=== PATIENT | male | born 1980 | race Caucasian/White ===

== ENCOUNTER 2017-09-10 00:01 | Emergency (ER) | payer BC ==
[2017-09-10] MEDS ORDERED: Nitrostat 0.4 MG (ED) SL ONE ×2 (00:21→00:43)
[2017-09-10] MEDS ORDERED: Phenergan 25 MG INJ IV ONE (00:25)
--- NOTE | 2017-09-10 00:26 | ERPHSYRPT ---
- History of Present Illness Time Seen by Provider: 09/10/17 00:12 Source: patient Exam Limitations: no limitations Patient Subjective Stated Complaint: c/o having dizziness and symptoms related to increased BP, no previous diagnosed hx Triage Nursing Assessment: dizziness, no vomiting or nausea, c/o head ache, pupils PERRLA, Alert and oriented x 4 Physician History: FOR THE PAST 3 HOURS PT HAS HAD AN INTERMITTENT PRESSURE HEADACHE, DIZZINESS AND PAIN IN THE LEFT SIDE OF THE NECK; FOR THE PAST 90 MINUTES NUMB LIPS; FOR THE PAST 30 MINUTES TINGLING DOWN BOTH ARMS. PT DENIES WEAKNESS, NAUSEA, VOMITING, SHORTNESS OF AIR. Allergies/Adverse Reactions: No Known Drug Allergies Allergy (Unverified 09/10/17 00:09) Home Medications: Anti-Depressant 09/10/17 [History] Gabapentin [Gralise] 09/10/17 [History] Mood Stimulator 09/10/17 [History] Omeprazole 20 MG [Prilosec 20 mg] 1 tab PO DAILY 09/10/17 [History] Hx Tetanus, Diphtheria Vaccination/Date Given: Yes Immunizations Up to Date: Yes - Review of Systems Constitutional: No Fever Respiratory: No Dyspnea Cardiac: No Chest Pain Abdominal/Gastrointestinal: No Nausea, No Vomiting Musculoskeletal: Neck Pain Neurological: Dizziness, Headache, Sensory Changes (TINGLING IN BOTH ARMS AND NUMB LIPS TONIGHT) All Other Systems: Reviewed and Negative - Past Medical History Neurological History: Peripheral Neuropathy GI Medical History: GERD Psycho-Social History: Anxiety, Depression, Other Other Medical History: PTSD - Past Surgical History Past Surgical History: No - Social History Smoking Status: Never smoker Drug Use: none - Nursing Vital Signs Nursing Vital Signs: Initial Vital Signs Temperature 98.6 F 09/10/17 00:18 Pulse Rate 80 09/10/17 00:18 Respiratory Rate 20 09/10/17 00:18 Blood Pressure 166/118 09/10/17 00:18 O2 Sat by Pulse Oximetry 98 09/10/17 00:18 Pain Scale Pain Intensity 0 - Physical Exam General Appearance: alert, anxiety Eye Exam: PERRL/EOMI Ears, Nose, Throat Exam: TMs normal, pharynx normal, moist mucous membranes Neck Exam: normal inspection Respiratory Exam: lungs clear Cardiovascular Exam: normal heart sounds Gastrointestinal/Abdomen Exam: soft, normal bowel sounds Back Exam: normal range of motion Extremity Exam: normal inspection, normal range of motion, No pedal edema Neurologic Exam: alert, cooperative, sensation nml, other (NO BABINSKI PRESENT) , No motor deficits, No motor weakness Skin Exam: warm, dry SpO2 Interpretation: normal SpO2: 98 Oxygen Delivery: Room Air - Course Nursing assessment & vital signs reviewed: Yes EKG Interpreted by Me: RATE (86), Sinus Rhythm, NORMAL AXIS, NORMAL INTERVALS - Radiology Exams Chest X-ray Interpretation: Interpreted by me, No Pneumonia - CT Exams Head CT Interpretation: Tele-radiologist Report (NORMAL) Ordered Tests: Active Orders 24 hr Category Date Time Status Supervisor Gelatin Plant STAT Care 09/10/17 00:23 Active EKG-ER Only STAT Care 09/10/17 00:21 Active IV Insertion STAT Care 09/10/17 00:21 Active CHEST 2 VIEWS (PA AND LAT) Stat Exams 09/10/17 00:22 Ordered HEAD WITHOUT CONTRAST [CT] Stat Exams 09/10/17 01:00 Taken CBC W DIFF Stat Lab 09/10/17 00:42 Completed CMP Stat Lab 09/10/17 00:42 Completed MAGNESIUM Stat Lab 09/10/17 00:42 Completed TROPONIN Q3H Lab 09/10/17 00:42 Completed TROPONIN Q3H Lab 09/10/17 03:30 Ordered TROPONIN Q3H Lab 09/10/17 06:30 Ordered TROPONIN Q3H Lab 09/10/17 09:30 Ordered TROPONIN Q3H Lab 09/10/17 12:30 Ordered Medication Summary Generic Name Dose Route Start Last Admin Trade Name Freq PRN Reason Stop Dose Admin Sodium Chloride 1,000 mls @ 100 mls/hr 09/10/17 00:30 09/10/17 00:54 Sodium Chloride 0.9% 1000 Ml IV 10/10/17 00:29 100 mls/hr .Q10H WILMAN Administration Discontinued Medications Generic Name Dose Route Start Last Admin Trade Name Freq PRN Reason Stop Dose Admin Nitroglycerin 0.4 mg 09/10/17 00:21 09/10/17 00:54 Nitrostat 0.4 Mg (Ed) SL 09/10/17 00:22 0.4 mg STAT ONE Administration Nitroglycerin Confirm 09/10/17 00:43 Nitrostat 0.4 Mg (Ed) Administered 09/10/17 00:44 Dose 0.4 mg SL .STK-MED ONE Promethazine HCl 12.5 mg 09/10/17 00:25 09/10/17 00:54 Phenergan 25 Mg Inj IV 09/10/17 00:26 12.5 mg STAT ONE Administration Promethazine HCl Confirm 09/10/17 00:43 Phenergan 25 Mg Inj Administered 09/10/17 00:44 Dose 25 mg .ROUTE .STK-MED ONE Lab/Rad Data: Laboratory Result Diagrams 09/10/17 00:42 09/10/17 00:42 Laboratory Results 09/10/17 09/10/17 09/10/17 Range/Units 00:42 00:42 00:42 WBC 8.3 (4.0-10.5) K/mm3 RBC 5.27 (4.1-5.6) M/mm3 Hgb 14.9 (12.5-18.0) gm/dl Hct 44.3 (42-50) % MCV 84.1 (78-100) fl MCH 28.3 (26-32) pg MCHC 33.6 (32-36) g/dl RDW 13.6 (11.5-14.0) % Plt Count 211 (150-450) K/mm3 MPV 9.9 H (6-9.5) fl Gran % 52.4 (36.0-66.0) % Lymphocytes % 38.6 (24.0-44.0) % Monocytes % 6.9 (0.0-12.0) % Eosinophils % 2.0 (0.00-5.0) % Basophils % 0.1 (0.0-0.4) % Basophils # 0.01 (0-0.4) Sodium 141 (136-145) mEq/L Potassium 3.9 (3.5-5.1) mEq/L Chloride 107 (98-107) mEq/L Carbon Dioxide 26.6 (21-32) mEq/L Anion Gap 11.7 (5-15) MEQ/L BUN 12 (9-20) mg/dL Creatinine 1.13 (0.55-1.30) mg/dl Estimated GFR > 60 ML/MIN Glucose 84 (70-110) MG/DL Calcium 8.7 (8.5-10.1) mg/dL Magnesium 2.0 (1.8-2.4) mg/dL Total Bilirubin 0.60 (0.2-1.0) mg/dL AST 29 (15-37) U/L ALT 56 (12-78) U/L Alkaline Phosphatase 90 (46-116) U/L Troponin I < 0.017 (0.000-0.056) ng/ml Serum Total Protein 7.5 (6.4-8.2) gm/dL Albumin 4.0 (3.4-5.0) g/dL - Departure Time of Disposition: 01:51 Departure Disposition: Home Clinical Impression: HTN, HEADACHE, DYSESTHESIA, ANXIETY, DEPRESSION, GERD Condition: Stable Critical Care Time: No Referrals: [facility]OSPITAL,'[facility] [Primary Care Provider] - Instructions: Malignant Hypertension (DC) Additional Instructions: FOLLOW UP WITH PRIVATE DOCTOR TOMORROW. Prescriptions: Enalapril Maleate 5 mg [Vasotec 5 MG] 5 mg PO DAILY #30 tablet
[2017-09-10] MEDS ORDERED: Sodium Chloride 0.9% 1000 ML 1,000 ML IV SCH (00:30)
[2017-09-10 00:43] LABS: BASOPHIL % 0.1 % (0.0-0.4); Basophil (Absolute #) 0.01 (0-0.4); Eosinophil (Absolute #) 0.17 (0-0.5); Granulocyte Absolute (ANC) 4.35 (1.4-6.9); Granulocytes % 52.4 % (36.0-66.0); Hematocrit 44.3 % (42-50); Hemoglobin 14.9 gm/dl (12.5-18.0); Lymphocytes % 38.6 % (24.0-44.0); Mean Cell Volume 84.1 fl (78-100); Mean Corpuscular Hemoglobin 28.3 pg (26-32); Mean Corpuscular Hgb Concent. 33.6 g/dl (32-36); Mean Platelet Volume 9.9 fl (6-9.5); Monocyte (Absolute #) 0.57 (0.0-1.3); Monocytes % 6.9 % (0.0-12.0); Platelet Count 211 K/mm3 (150-450); Red Blood Count 5.27 M/mm3 (4.1-5.6); Red Cell Distribution Width 13.6 % (11.5-14.0); White Blood Count 8.3 K/mm3 (4.0-10.5)
[2017-09-10] MEDS ORDERED: Sodium Chloride 0.9% 1000 ML 1,000 ML ONE (00:43)
[2017-09-10] MEDS ORDERED: Phenergan 25 MG INJ ONE (00:43)
[2017-09-10 01:01] VITALS: O2SAT 98
[2017-09-10 01:10] LABS: ALKALINE PHOSPHATASE 90 U/L (46-116); ANION GAP 11.7 MEQ/L (5-15); BLOOD UREA NITROGEN 12 mg/dL (9-20); CHLORIDE 107 mEq/L (98-107); Calcium 8.7 mg/dL (8.5-10.1); Carbon Dioxide 26.6 mEq/L (21-32); Creatinine 1 1.13 mg/dl (0.55-1.30); EST GLOMERULAR FILTRATION RATE > 60 ML/MIN; Glucose 84 MG/DL (70-110); Potassium 3.9 mEq/L (3.5-5.1); SGOT/AST 29 U/L (15-37); SGPT/ALT 56 U/L (12-78); SODIUM 141 mEq/L (136-145); Total Protein 7.5 gm/dL (6.4-8.2)
[2017-09-10] MEDS ORDERED: Vasotec 5 MG PO ONE (01:51)
[2017-09-10 02:19] VITALS: BP 128/84; PULSE 68
--- NOTE | 2017-09-10 08:53 | XRAY ---
Indication: Headache. High blood pressure. Multiple contiguous axial images obtained through the head without contrast. Comparison: None Normal appearing brain parenchyma, ventricles, and bony calvarium. Visualized paranasal sinuses and mastoid air cells are clear. Impression: Normal CT head without contrast exam. Comment: Preliminary interpretation was made by [facility]. No discrepancy. CT DI 67.60
--- NOTE | 2017-09-10 08:55 | XRAY ---
Indication: Hypertension and dizziness. Comparison: None PA/lateral chest hyperinflated and clear with a few incidental calcified granulomas. Heart is not enlarged. Bony thorax intact. Impression: Nonacute chest.
== END 2017-09-10 02:40 | disposition home or self-care (01) ==
LOC: ED 00:01
DX: I10 Essential (primary) hypertension (principal); R51 Headache; R20.8 Other disturbances of skin sensation; F41.8 Other specified anxiety disorders; K21.9 Gastro-esophageal reflux disease without esophagitis
CPT/HCPCS: 36000; 36415; 70450; 71046; 80053; 83735; 84484; 85025; 93005; 93041; 96360; 96361; 99284; J2550; A9270-GY

== ENCOUNTER 2019-10-18 11:08 | Day surgery (SDC) | payer OTHER ==
[2019-10-18] MEDS ORDERED: Xylocaine-Mpf 2% 5 Ml Vial IJ ONE (11:09)
[2019-10-18] MEDS ORDERED: Depo-Medrol 40 MG/ML IM ONE (11:09)
[2019-10-18] MEDS ORDERED: DIPRIVAN 200 MG/20 ML IV ONE (13:39)
[2019-10-18] MEDS ORDERED: Ketamine HCl 50 MG/ML ONE (13:40)
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
[2019-10-18] MEDS ORDERED: Lactated Ringers 1,000 ML IV ONE (14:46)
--- NOTE | 2019-10-18 14:52 | XRAY ---
7 seconds fluoroscopy time in surgery for bilateral L4-S1 MBB.
== END 2019-10-18 15:01 | disposition home or self-care (01) ==
LOC: SDC-PAIN 11:08
PROVIDERS: ATTEND Psychiatry & Neurology Pain Medicine
DX: M47.816 Spondylosis without myelopathy or radiculopathy, lumbar region (principal); I10 Essential (primary) hypertension; G47.30 Sleep apnea, unspecified; F41.8 Other specified anxiety disorders; K21.9 Gastro-esophageal reflux disease without esophagitis; F43.10 Post-traumatic stress disorder, unspecified; Z79.899 Other long term (current) drug therapy
CPT/HCPCS: 64493; 64494; 72020; 77002; J1030; J2704

== ENCOUNTER 2019-11-20 09:46 | Observation (INO) | payer OTHER ==
[2019-11-20] MEDS ORDERED: TORAdol 30 mg Injection IM ONE (10:06)
[2019-11-20] MEDS ORDERED: DECADRON 10MG INJ. PO ONE (10:06)
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
[2019-11-20] MEDS ORDERED: TORAdol 30 mg Injection ONE (10:19)
[2019-11-20] MEDS ORDERED: DECADRON 10MG INJ. ONE (10:19)
--- NOTE | 2019-11-20 10:49 | XRAY ---
Indication: Low back pain. Comparison: None 3 views of the lumbar spine demonstrates 5 lumbar vertebral segments with mild L5-S1 degenerative disc space narrowing/endplate spurring. No other bony, articular, or soft tissue abnormalities.
[2019-11-20] MEDS ORDERED: MORPHINE SULFATE 10 MG/ML IM ONE (11:24)
[2019-11-20] MEDS ORDERED: MORPHINE SULFATE 10 MG/ML ONE (11:27)
[2019-11-20] MEDS ORDERED: MORPHINE SULFATE 4 MG INJ IV ONE (12:27)
[2019-11-20] MEDS ORDERED: MORPHINE SULFATE 4 MG INJ ONE (12:34)
[2019-11-20] MEDS ORDERED: Depo-Medrol 40 MG/ML IM ONE (12:41)
[2019-11-20] MEDS ORDERED: Xylocaine 1% Vial 30 ML PF IJ ONE (12:41)
[2019-11-20] MEDS ORDERED: Sodium Chloride 0.9(Preservative Free) 10 ML IJ ONE (12:41)
[2019-11-20] MEDS ORDERED: TORAdol 30 mg Injection IV PRN (12:53)
[2019-11-20] MEDS: Cyclobenzaprine 10 MG PO PRN ×2 (13:25→19:40)
[2019-11-20 14:24] LABS: Appearance CLEAR (CLEAR); Bilirubin NEGATIVE (NEGATIVE); Blood MODERATE Ery/ul (0-5); Glucose NEGATIVE (NEGATIVE); Ketones NEGATIVE (NEGATIVE); Leukocyte Esterase NEGATIVE (NEGATIVE); Mucus SLIGHT /HPF (NEGATIVE); Nitrite NEGATIVE (NEGATIVE); Protein,Urine Dip NEGATIVE (Negative); RBC 26-50 /HPF (0-2); Specific Gravity 1.014 (1.005-1.025); Urobilinogen 2 mg/dL (0-1)
[2019-11-20] MEDS: Neurontin 400 MG PO SCH ×3 (14:28→21:07)
[2019-11-20 14:47] LABS: Amphetamine,Urine NEGATIVE (NEGATIVE); Barbiturate,Urine NEGATIVE (NEGATIVE); Benzodiazepine,Urine NEGATIVE (NEGATIVE); Cocaine,Urine NEGATIVE (NEGATIVE); Methadone,Urine NEGATIVE (NEGATIVE); Opiate,Urine POSITIVE (NEGATIVE); PCP,Urine NEGATIVE (NEGATIVE); THC,Urine NEGATIVE (NEGATIVE)
[2019-11-20] MEDS: MORPHINE SULFATE 4 MG INJ IV PRN ×2 (16:16→20:26)
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
[2019-11-20] MEDS ORDERED: ZOLPIDEM TARTRATE 12.5 MG PO PRN (17:30)
[2019-11-20] MEDS ORDERED: Sodium Chloride 0.9% 1000 ML 1,000 ML IV SCH (17:30)
[2019-11-20] MEDS ORDERED: Ambien 10 MG PO PRN (17:34)
[2019-11-20 17:35] LABS: Hematocrit 47.1 % (42-50); Hemoglobin 16.1 gm/dl (12.5-18.0); Mean Cell Volume 84.6 fl (78-100); Mean Corpuscular Hemoglobin 28.9 pg (26-32); Mean Corpuscular Hgb Concent. 34.2 g/dl (32-36); Mean Platelet Volume 10.3 fl (7.5-11.0); Platelet Count 253 K/mm3 (150-450); Red Blood Count 5.57 M/mm3 (4.1-5.6); Red Cell Distribution Width 14.6 % (11.5-14.0); White Blood Count 14.6 K/mm3 (4.0-10.5)
[2019-11-20] MEDS ORDERED: Ambien 5 MG Tablet PO PRN (17:35)
[2019-11-20] MEDS: Protonix 40MG Tablet PO SCH (17:39)
[2019-11-20] MEDS: Cymbalta 30 MG Capsule PO SCH (17:40)
[2019-11-20] MEDS: hydroDIURIL 25 MG PO SCH (17:40)
[2019-11-20 17:41] LABS: ALBUMIN 4.5 g/dL (3.5-5.0); ALKALINE PHOSPHATASE 67 U/L (38-126); ANION GAP 13.9 MEQ/L (5-15); BLOOD UREA NITROGEN 12 mg/dL (9-20); CHLORIDE 101 mmol/L (98-107); Calcium 9.4 mg/dL (8.4-10.2); Carbon Dioxide 26 mmol/L (22-30); Creatinine 1 0.61 mg/dL (0.66-1.25); Glucose 116 mg/dL (74-106); Potassium 4.1 mmol/L (3.5-5.1); SGOT/AST 33 U/L (17-59); SGPT/ALT 53 U/L (0-50); SODIUM 137 mmol/L (137-145); Total Protein 8.3 g/dL (6.3-8.2)
[2019-11-20] MEDS: Wellbutrin SR 150 MG PO SCH (17:41)
[2019-11-20] MEDS: Vasotec 10 MG PO SCH (17:42)
[2019-11-20] MEDS ORDERED: MEDICATION INTERVENTION PO SCH (17:45)
[2019-11-20] MEDS ORDERED: Vasotec 5 MG PO SCH (18:00)
[2019-11-20 19:47] LABS: Eosinophil 4 % (0.00-3.0); Lymphocytes 17 % (24-44); Monocyte 9 % (0.0-12.0); Neutrophils 70 % (36.-66.); Total Cells Counted 100
[2019-11-20 19:48] LABS: ANISOCYTOSIS 1+; Platelet Estimate NORMAL (NORMAL); Poikilocytosis 1+
[2019-11-20] MEDS ORDERED: PRAZOSIN HCL 3 MG PO SCH (22:00)
[2019-11-20] MEDS: DILAUDID 2 MG INJECTION IV STA ×2 (22:18→22:50)
[2019-11-20] MEDS ORDERED: DILAUDID 2 MG INJECTION IV STA (22:47)
[2019-11-20] MEDS ORDERED: DILAUDID 1 MG/1ML PCA IV PRN (23:12)
[2019-11-20] MEDS ORDERED: ELAVIL 25 MG ONE (23:16)
[2019-11-20] MEDS: ELAVIL 25 MG PO SCH (23:24)
[2019-11-21] MEDS: Sodium Chloride 0.9% W/ 20 mEq KCl/LITER 1,000 ML IV SCH ×3 (00:12→20:58)
[2019-11-21 05:34] LABS: AMYLASE 109 U/L (30-110); ANION GAP 12.3 MEQ/L (5-15); BLOOD UREA NITROGEN 17 mg/dL (9-20); CHLORIDE 103 mmol/L (98-107); Calcium 8.8 mg/dL (8.4-10.2); Carbon Dioxide 27 mmol/L (22-30); Creatinine 1 0.68 mg/dL (0.66-1.25); Glucose 120 mg/dL (74-106); LIPASE 420 U/L (23-300); SODIUM 138 mmol/L (137-145)
[2019-11-21] MEDS: Sodium Chloride 0.9% 1000 ML 1,000 ML IV SCH (06:36)
[2019-11-21] MEDS ORDERED: DIPRIVAN 200 MG/20 ML IV ONE (07:06)
[2019-11-21] MEDS ORDERED: Ketamine HCl 50 MG/ML ONE (07:07)
[2019-11-21] MEDS ORDERED: Xylocaine-Mpf 2% 5 Ml Vial ONE (07:35)
--- NOTE | 2019-11-21 09:10 | XRAY ---
Indication: Left flank pain. Hematuria. Multiple contiguous axial images obtained through the abdomen and pelvis without contrast using renal stone protocol. Comparison: None Lung bases demonstrates scattered bibasilar subsegmental atelectasis/scarring. No infiltrate or effusion. Heart is not enlarged. No renal calculus or evidence for obstructive uropathy in either system. Urinary bladder is markedly distended concerning for outlet obstruction versus neurogenic bladder. Tail the pancreas demonstrates mild edema with peripancreatic stranding favoring acute pancreatitis. Tiny fluid in the left colic gutter presumed reactive. No walled off fluid collection or free air. Noncontrasted stomach and bowel loops appear nonobstructed. Normal appendix. Mild scattered colonic fecal debris greatest in the ascending and transverse colon. Diffuse fatty 24 cm hepatomegaly. Also 15 cm splenomegaly. Remaining gallbladder, adrenal glands, and aorta appear unremarkable for noncontrast exam. Osseous structures intact. Lumbar spine demonstrates small epidural contrast from same day LOULOU procedure. Incidental small fatty umbilical hernia. Impression: 1. Negative renal calculus or evidence for obstructive uropathy. 2. Markedly distended urinary bladder. Rule out outlet obstruction versus neurogenic bladder. 3. Mild pancreatitis involving the tail with tiny reactive free fluid. 4. Incidental fatty hepatomegaly, splenomegaly, and fatty umbilical hernia.
--- NOTE | 2019-11-21 09:24 | XRAY ---
Indication: Lumbar LOULOU. Intraoperative fluoroscopy was provided for 18 seconds. 2 digital spot images submitted for interpretation demonstrates needle tip just posterior to the L4 segment. Small amount of contrast injected for needle tip placement. Correlate with intraoperative findings/report.
--- NOTE | 2019-11-21 09:25 | XRAY ---
18 seconds fluoroscopy time in surgery for lumbar LOULOU.
--- NOTE | 2019-11-21 09:25 | XRAY ---
Indication: Left leg pain. 2-dimensional sonogram and color Doppler imaging of the major venous vessels of the left leg was performed. Comparison: None No thrombus seen in the examined deep venous vessels of the left leg including greater saphenous vein. Veins demonstrate normal compressibility. Venous waveforms are normal with and without augmentation. Impression: Left leg negative for DVT.
[2019-11-21] MEDS ORDERED: FLUZONE QUAD 2019-2020 SYRINGE IM ONE (10:00)
[2019-11-21] MEDS: Cymbalta 30 MG Capsule PO SCH (10:06)
[2019-11-21] MEDS: Neurontin 400 MG PO SCH ×4 (10:06→20:58)
[2019-11-21] MEDS: Wellbutrin SR 150 MG PO SCH (10:07)
[2019-11-21] MEDS: Protonix 40MG Tablet PO SCH (10:07)
[2019-11-21] MEDS: hydroDIURIL 25 MG PO SCH (10:11)
[2019-11-21] MEDS: Vasotec 10 MG PO SCH (10:11)
--- NOTE | 2019-11-21 14:28 | PCM.NOTE ---
Date and Time: 11/21/191416 Subjective Assessment: Patient c/o LUQ pain after eating ,gradually worse and c/o chilling. States back pain and left leg pain are about 50% improved after steroid injection this morning. WBC on adm was 14,600 with left shift. Amylase and lipase elevated this morning. Patient denies GB dz of Hx hepatitis or pancreatitis. Objective Exam General Appearance: mild distress Neurologic Exam: alert, oriented x 3, cooperative Respiratory Exam: normal breath sounds, lungs clear Cardiovascular Exam: tachycardia, other (regular) Gastrointestinal/Abdomen Exam: soft, tenderness (left upper mid abd 2+/4) OBJECTIVE DATA Vital Signs: Vital Signs - 24 hr Temp Pulse Resp BP Pulse Ox 11/21/19 12:12 99.4 F 103 H 16 118/57 96 11/21/19 10:11 100 H 112/58 11/21/19 10:00 96 11/21/19 07:56 97.6 F 88 18 108/51 95 11/21/19 07:24 16 113/63 94 L 11/21/19 06:44 94 L 11/21/19 04:00 95 H 96 11/21/19 03:24 96 11/21/19 00:00 97.7 F 104 H 20 113/63 96 11/20/19 23:24 95 11/20/19 19:37 97.8 F 120 H 18 121/72 96 11/20/19 18:51 95 11/20/19 18:18 94 L 11/20/19 16:00 98 F 107 H 18 121/77 94 L Pain Assessment - Last Documented Pain Intensity [Posterior Back 10 ] Pain Intensity 5 Pain Scale Used 0-10 Pain Scale Intake and Output: Intake & Output 11/19/19 11/20/19 11/21/19 11/22/19 11:59 11:59 11:59 11:59 Intake Total 1884 Output Total 1500 Balance 384 Weight 167.829 kg 167.829 kg Lab Results: Lab Results-Last 24 Hours 11/20/19 11/20/19 11/20/19 Range/Units 14:00 14:15 Unknown WBC (4.0-10.5) K/mm3 RBC (4.1-5.6) M/mm3 Hgb (12.5-18.0) gm/dl Hct (42-50) % MCV (78-100) fl MCH (26-32) pg MCHC (32-36) g/dl RDW (11.5-14.0) % Plt Count (150-450) K/mm3 MPV (7.5-11.0) fl Segmented Neutrophils (36.-66.) % Lymphocytes (Manual) (24-44) % Monocytes (Manual) (0.0-12.0) % Eosinophils (Manual) (0.00-3.0) % Platelet Estimate (NORMAL) RBC Morphology Poikilocytosis Anisocytosis Sodium (137-145) mmol/L Potassium (3.5-5.1) mmol/L Chloride (98-107) mmol/L Carbon Dioxide (22-30) mmol/L Anion Gap (5-15) MEQ/L BUN (9-20) mg/dL Creatinine (0.66-1.25) mg/dL Estimated GFR ML/MIN Glucose (74-106) mg/dL Calcium (8.4-10.2) mg/dL Total Bilirubin (0.2-1.3) mg/dL AST (17-59) U/L ALT (0-50) U/L Alkaline Phosphatase (38-126) U/L Serum Total Protein (6.3-8.2) g/dL Albumin (3.5-5.0) g/dL Amylase (30-110) U/L Lipase (23-300) U/L TSH 3rd Generation 3.190 (0.47-4.68) mIU/L Urine Color YELLOW (YELLOW) Urine Appearance CLEAR (CLEAR) Urine pH 6.0 (5-6) Ur Specific [place] 1.014 (1.005-1.025) Urine Protein NEGATIVE (Negative) Urine Ketones NEGATIVE (NEGATIVE) Urine Blood MODERATE (0-5) Rupert/ul Urine Nitrite NEGATIVE (NEGATIVE) Urine Bilirubin NEGATIVE (NEGATIVE) Urine Urobilinogen 2 (0-1) mg/dL Ur Leukocyte Esterase NEGATIVE (NEGATIVE) Urine WBC (Auto) NONE (0-5) /HPF Urine RBC (Auto) 26-50 (0-2) /HPF U Epithel Cells (Auto) NONE (FEW) /HPF Urine Bacteria (Auto) NONE (NEGATIVE) /HPF Urine Mucus (Auto) SLIGHT (NEGATIVE) /HPF Urine Culture Reflexed NO (NO) Urine Glucose NEGATIVE (NEGATIVE) mg/dL Urine Opiates Level POSITIVE (NEGATIVE) Ur Methadone NEGATIVE (NEGATIVE) Urine Barbiturates NEGATIVE (NEGATIVE) Ur Phencyclidine (PCP) NEGATIVE (NEGATIVE) Urine Amphetamine NEGATIVE (NEGATIVE) U Benzodiazepine Level NEGATIVE (NEGATIVE) Urine Cocaine NEGATIVE (NEGATIVE) Urine Marijuana (THC) NEGATIVE (NEGATIVE) 11/20/19 11/20/19 11/21/19 Range/Units Unknown Unknown 04:40 WBC 14.6 H (4.0-10.5) K/mm3 RBC 5.57 (4.1-5.6) M/mm3 Hgb 16.1 (12.5-18.0) gm/dl Hct 47.1 (42-50) % MCV 84.6 (78-100) fl MCH 28.9 (26-32) pg MCHC 34.2 (32-36) g/dl RDW 14.6 H (11.5-14.0) % Plt Count 253 (150-450) K/mm3 MPV 10.3 (7.5-11.0) fl Segmented Neutrophils 70 H (36.-66.) % Lymphocytes (Manual) 17 L (24-44) % Monocytes (Manual) 9 (0.0-12.0) % Eosinophils (Manual) 4 H (0.00-3.0) % Platelet Estimate NORMAL (NORMAL) RBC Morphology ABNORMAL Poikilocytosis 1+ Anisocytosis 1+ Sodium 137 138 (137-145) mmol/L Potassium 4.1 4.0 (3.5-5.1) mmol/L Chloride 101 103 (98-107) mmol/L Carbon Dioxide 26 27 (22-30) mmol/L Anion Gap 13.9 12.3 (5-15) MEQ/L BUN 12 17 (9-20) mg/dL Creatinine 0.61 L 0.68 (0.66-1.25) mg/dL Estimated GFR > 60.0 > 60.0 ML/MIN Glucose 116 H 120 H (74-106) mg/dL Calcium 9.4 8.8 (8.4-10.2) mg/dL Total Bilirubin 1.30 (0.2-1.3) mg/dL AST 33 (17-59) U/L ALT 53 H (0-50) U/L Alkaline Phosphatase 67 (38-126) U/L Serum Total Protein 8.3 H (6.3-8.2) g/dL Albumin 4.5 (3.5-5.0) g/dL Amylase 109 (30-110) U/L Lipase 420 H (23-300) U/L TSH 3rd Generation (0.47-4.68) mIU/L Urine Color (YELLOW) Urine Appearance (CLEAR) Urine pH (5-6) Ur Specific [place] (1.005-1.025) Urine Protein (Negative) Urine Ketones (NEGATIVE) Urine Blood (0-5) Rupert/ul Urine Nitrite (NEGATIVE) Urine Bilirubin (NEGATIVE) Urine Urobilinogen (0-1) mg/dL Ur Leukocyte Esterase (NEGATIVE) Urine WBC (Auto) (0-5) /HPF Urine RBC (Auto) (0-2) /HPF U Epithel Cells (Auto) (FEW) /HPF Urine Bacteria (Auto) (NEGATIVE) /HPF Urine Mucus (Auto) (NEGATIVE) /HPF Urine Culture Reflexed (NO) Urine Glucose (NEGATIVE) mg/dL Urine Opiates Level (NEGATIVE) Ur Methadone (NEGATIVE) Urine Barbiturates (NEGATIVE) Ur Phencyclidine (PCP) (NEGATIVE) Urine Amphetamine (NEGATIVE) U Benzodiazepine Level (NEGATIVE) Urine Cocaine (NEGATIVE) Urine Marijuana (THC) (NEGATIVE) Radiology Exams: Radiology Procedures Category Date Time Status ABDOMEN AND PELVIS W/0 CONTRAS [CT] Routine Exams 11/21/19 17:00 Completed ABDOMINAL-LIMITED [US] Routine Exams 11/22/19 08:00 Ordered BILE DUCT [US] Routine Exams 11/21/19 Ordered FLUORO FOR LOULOU-PMG Routine Exams 11/21/19 07:06 Completed LUMBAR LIMITED (2 OR 3 VIEWS) Routine Exams 11/21/19 07:06 Completed LUMBAR LIMITED (2 OR 3 VIEWS) Stat Exams 11/20/19 10:09 Completed Ultrasound Unilateral Extremities [VENOUS UNILAT/ Exams 11/21/19 09:00 Completed LIMITED EXTREMIT] [US] Urgent Assessment/Plan (1) Intractable low back pain Current Visit: Yes Status: Acute Assessment & Plan: improved post epidural steroid inj under anesthesia today Dr Chacon. Code(s): M54.5 - LOW BACK PAIN (2) Lumbar radiculopathy Current Visit: Yes Status: Chronic Code(s): M54.16 - RADICULOPATHY, LUMBAR REGION (3) HTN (hypertension) Current Visit: Yes Status: Acute Qualifiers: Hypertension type: essential hypertension Qualified Code(s): I10 - Essential (primary) hypertension Code(s): I10 - ESSENTIAL (PRIMARY) HYPERTENSION (4) Hematuria Current Visit: Yes Status: Acute Code(s): R31.9 - HEMATURIA, UNSPECIFIED (5) Family history of cancer of the kidney Current Visit: Yes Status: Chronic Code(s): Z80.51 - FAMILY HISTORY OF MALIGNANT NEOPLASM OF KIDNEY (6) Family history of prostate cancer in father Current Visit: Yes Status: Chronic Code(s): Z80.42 - FAMILY HISTORY OF MALIGNANT NEOPLASM OF PROSTATE (7) Left upper quadrant abdominal pain of unknown etiology Current Visit: Yes Status: Acute Code(s): R10.12 - LEFT UPPER QUADRANT PAIN (8) GERD (gastroesophageal reflux disease) Current Visit: Yes Status: Chronic Code(s): K21.9 - GASTRO-ESOPHAGEAL REFLUX DISEASE WITHOUT ESOPHAGITIS (9) Pancreatitis, acute Current Visit: Yes Status: Acute Assessment & Plan: liver,GB,pancreas US in AM continue IV antibiotic and clear liq diet Code(s): K85.90 - ACUTE PANCREATITIS WITHOUT NECROSIS OR INFECTION, UNSP
[2019-11-21 15:00] LABS: Hematocrit 41.1 % (42-50); Hemoglobin 13.7 gm/dl (12.5-18.0); Mean Cell Volume 86.2 fl (78-100); Mean Corpuscular Hemoglobin 28.7 pg (26-32); Mean Corpuscular Hgb Concent. 33.3 g/dl (32-36); Mean Platelet Volume 9.8 fl (7.5-11.0); Platelet Count 229 K/mm3 (150-450); Red Blood Count 4.77 M/mm3 (4.1-5.6); Red Cell Distribution Width 14.7 % (11.5-14.0); White Blood Count 14.6 K/mm3 (4.0-10.5)
[2019-11-21] MEDS: SODIUM CHLORIDE 0.9% IV SCH ×2 (15:01→20:59)
[2019-11-21] MEDS: MERREM IV SCH ×2 (15:01→20:59)
[2019-11-21 17:46] LABS: ANISOCYTOSIS 1+; BAND 3 % (0.0-2.0); Eosinophil 1 % (0.00-3.0); Lymphocytes 10 % (24-44); Monocyte 7 % (0.0-12.0); Neutrophils 79 % (36.-66.); Platelet Estimate NORMAL (NORMAL); Total Cells Counted 100; Toxic Granulation 1+
[2019-11-21] MEDS: Cyclobenzaprine 10 MG PO PRN (18:21)
[2019-11-21] MEDS: ELAVIL 25 MG PO SCH (20:58)
[2019-11-22 03:43] LABS: Prostate Specific Antigen 0.14 ng/mL (<=2.50)
[2019-11-22] MEDS: Sodium Chloride 0.9% W/ 20 mEq KCl/LITER 1,000 ML IV SCH ×3 (05:16→18:39)
[2019-11-22] MEDS: SODIUM CHLORIDE 0.9% IV SCH ×3 (05:16→21:58)
[2019-11-22] MEDS: MERREM IV SCH ×3 (05:16→21:58)
[2019-11-22] MEDS: Sodium Chloride 0.9% 1000 ML 1,000 ML IV SCH (07:10)
--- NOTE | 2019-11-22 08:52 | XRAY ---
Indication: Acute pancreatitis. Fever. Two-dimensional abdominal sonogram performed. Comparison: None Gallbladder normally distended with multiple stones in the dependent portion, largest 1.6 cm. No abnormal gallbladder wall thickening or pericholecystic fluid. Common bile duct measures 4.7 mm. No intrahepatic biliary distention. Visualized portions of the liver fatty in echogenicity with 19.1 cm hepatomegaly. No ascites. Spleen is also enlarged measuring 13.1 cm. Pancreatic tail not well visualized due to overlying bowel gas. Pancreatic head and proximal body appear sonographically unremarkable. No abnormal pancreatic duct dilatation. Visualized aorta and IVC are normal in course and caliber. Right kidney measures 11.6 cm and the left measures 12.1 cm in length. No focal solid/cystic renal mass or hydronephrosis. Cortical medullary differentiation preserved. Impression: 1. Cholelithiasis without cholecystitis or biliary distention. 2. Pancreas incompletely visualized. 3. Fatty hepatomegaly and splenomegaly. 4. Remaining abdominal sonogram is negative.
[2019-11-22] MEDS: Protonix 40MG Tablet PO SCH (09:39)
[2019-11-22] MEDS: Vasotec 10 MG PO SCH (09:39)
[2019-11-22] MEDS: Wellbutrin SR 150 MG PO SCH (09:39)
[2019-11-22] MEDS: Neurontin 400 MG PO SCH ×4 (09:39→21:58)
[2019-11-22] MEDS: hydroDIURIL 25 MG PO SCH (09:39)
[2019-11-22] MEDS: Cymbalta 30 MG Capsule PO SCH (09:40)
--- NOTE | 2019-11-22 12:07 | PCM.NOTE ---
Date and Time: 11/22/19 1205 Subjective Assessment: Patient had abd US this morning that shows gall stones and no biliary dilitation and pancreatitis. Patient has less LUQ pain on clear liq diet and is hungry. Back and leg pain improving. LBP is better and Left calf pain if layning supine releived if laying on right side. Objective Exam General Appearance: mild distress Neurologic Exam: alert, oriented x 3, cooperative Skin Exam: normal color, warm, dry Respiratory Exam: normal breath sounds, lungs clear Cardiovascular Exam: regular rate/rhythm Gastrointestinal/Abdomen Exam: soft, normal bowel sounds, tenderness (LUQ 1+/4 no guarding) Back Exam: muscle spasm OBJECTIVE DATA Vital Signs: Vital Signs - 24 hr Temp Pulse Resp BP Pulse Ox 11/22/19 10:00 96 11/22/19 08:00 98.2 F 94 H 16 148/63 92 L 11/22/19 07:07 94 L 11/22/19 05:23 93 L 11/22/19 04:00 98.2 F 106 H 18 126/67 93 L 11/22/19 02:00 93 L 11/22/19 00:00 98.0 F 107 H 20 123/60 93 L 11/21/19 22:00 93 L 11/21/19 20:00 98.0 F 108 H 19 120/72 93 L 11/21/19 19:10 94 L 11/21/19 19:00 97 11/21/19 18:00 96 11/21/19 16:00 99.0 F 110 H 16 103/55 96 11/21/19 14:00 96 11/21/19 12:12 99.4 F 103 H 16 118/57 96 Pain Assessment - Last Documented Pain Intensity [Posterior Back 10 ] Pain Intensity 6 Pain Scale Used 0-10 Pain Scale Intake and Output: Intake & Output 11/20/19 11/21/19 11/22/19 11/23/19 11:59 11:59 11:59 11:59 Intake Total 1884 6140 Output Total 1500 900 Balance 384 5240 Weight 167.829 kg 167.829 kg Lab Results: Lab Results-Last 24 Hours 11/20/19 11/21/19 Range/Units Unknown 14:02 WBC 14.6 H (4.0-10.5) K/mm3 RBC 4.77 (4.1-5.6) M/mm3 Hgb 13.7 (12.5-18.0) gm/dl Hct 41.1 L (42-50) % MCV 86.2 (78-100) fl MCH 28.7 (26-32) pg MCHC 33.3 (32-36) g/dl RDW 14.7 H (11.5-14.0) % Plt Count 229 (150-450) K/mm3 MPV 9.8 (7.5-11.0) fl Segmented Neutrophils 79 H (36.-66.) % Band Neutrophils 3 H (0.0-2.0) % Lymphocytes (Manual) 10 L (24-44) % Monocytes (Manual) 7 (0.0-12.0) % Eosinophils (Manual) 1 (0.00-3.0) % Toxic Granulation 1+ Platelet Estimate NORMAL (NORMAL) RBC Morphology ABNORMAL Anisocytosis 1+ Prostate Specific Ag 0.14 (<=2.50) ng/mL Free PSA 29 % Radiology Exams: Radiology Procedures Category Date Time Status ABDOMEN AND PELVIS W/0 CONTRAS [CT] Routine Exams 11/21/19 17:00 Completed FLUORO FOR LOULOU-PMG Routine Exams 11/21/19 07:06 Completed LUMBAR LIMITED (2 OR 3 VIEWS) Routine Exams 11/21/19 07:06 Completed UPPER ABDOMEN [US] Routine Exams 11/22/19 08:00 Completed Ultrasound Unilateral Extremities [VENOUS UNILAT/ Exams 11/21/19 09:00 Completed LIMITED EXTREMIT] [US] Urgent Multi-Disciplinary Progress Notes: Multi-Disciplinary Progress Notes 11/22/19 10:31 Case Management Note by Elza Gooden S/W PATIENT- HE CONTINUES TO DENY ANY NEEDS REGARDING DC AT THIS TIME Initialized on 11/22/19 10:31 - END OF NOTE 11/22/19 10:13 Case Management Note by Marlin Koroma [facility]KE WITH [facility] [place], ONLY REQUEST THAT DC SUMMARY BE FAXEDTO WHEN PT IS DISCHARGED. SPOKE WITH PT'S PRIMARY CARE TEAM IN [place], DISCUSSED DR. TALAVERA REQUEST FOR GI FOLLOW UP ON DISCHARGE. NURSE TO CALL PT ONCE DISCHARGED TO ARRANGE APPOINTMENT. ALSO, REQUESTED THAT H&P, PROGRESS NOTES, PERTINENT DIAGNOSTICS, AND DC SUMMARY BE FAXED TO C/O DR. DA SILVA. WILL FAX TO BOTH AR FACILITIES WHEN DC SUMMARY IS AVAILABLE. Initialized on 11/22/19 10:13 - END OF NOTE Assessment/Plan (1) Intractable low back pain Current Visit: Yes Status: Acute Assessment & Plan: improving Code(s): M54.5 - LOW BACK PAIN (2) Lumbar radiculopathy Current Visit: Yes Status: Chronic Assessment & Plan: positional,improving Code(s): M54.16 - RADICULOPATHY, LUMBAR REGION (3) HTN (hypertension) Current Visit: Yes Status: Acute Qualifiers: Hypertension type: essential hypertension Qualified Code(s): I10 - Essential (primary) hypertension Code(s): I10 - ESSENTIAL (PRIMARY) HYPERTENSION (4) Hematuria Current Visit: Yes Status: Acute Code(s): R31.9 - HEMATURIA, UNSPECIFIED (5) Family history of cancer of the kidney Current Visit: Yes Status: Chronic Code(s): Z80.51 - FAMILY HISTORY OF MALIGNANT NEOPLASM OF KIDNEY (6) Family history of prostate cancer in father Current Visit: Yes Status: Chronic Code(s): Z80.42 - FAMILY HISTORY OF MALIGNANT NEOPLASM OF PROSTATE (7) Left upper quadrant abdominal pain of unknown etiology Current Visit: Yes Status: Acute Code(s): R10.12 - LEFT UPPER QUADRANT PAIN (8) GERD (gastroesophageal reflux disease) Current Visit: Yes Status: Chronic Code(s): K21.9 - GASTRO-ESOPHAGEAL REFLUX DISEASE WITHOUT ESOPHAGITIS (9) Pancreatitis, acute Current Visit: Yes Status: Acute Assessment & Plan: will advance to low fat diet,need to complete antibiotic series, WBC improved Code(s): K85.90 - ACUTE PANCREATITIS WITHOUT NECROSIS OR INFECTION, UNSP
[2019-11-22 13:44] LABS: Absolute Neutrophil Ct (ANC) 8.59 (1.4-6.9); BASOPHIL % 0.2 % (0.0-0.4); Basophil (Absolute #) 0.02 (0-0.4); Eosinophil % 3.1 % (0.00-5.0); Eosinophil (Absolute #) 0.39 (0-0.5); Hematocrit 41.8 % (42-50); Hemoglobin 13.8 gm/dl (12.5-18.0); Lymphocyte (Absolute #) 2.26 (1.0-4.6); Lymphocytes % 18.2 % (24.0-44.0); Mean Cell Volume 86.5 fl (78-100); Mean Corpuscular Hemoglobin 28.6 pg (26-32); Mean Platelet Volume 9.4 fl (7.5-11.0); Monocyte (Absolute #) 1.13 (0.0-1.3); Monocytes % 9.1 % (0.0-12.0); Neutrophil % 69.4 % (36.0-66.0); Platelet Count 223 K/mm3 (150-450); Red Blood Count 4.83 M/mm3 (4.1-5.6); Red Cell Distribution Width 14.7 % (11.5-14.0); White Blood Count 12.4 K/mm3 (4.0-10.5)
[2019-11-22] MEDS: OXYCODONE-ACETAMINOPHEN 10-325 PO PRN ×2 (14:14→20:11)
[2019-11-22 14:20] LABS: ALKALINE PHOSPHATASE 62 U/L (38-126); AMYLASE 42 U/L (30-110); ANION GAP 13.2 MEQ/L (5-15); BLOOD UREA NITROGEN 13 mg/dL (9-20); CHLORIDE 101 mmol/L (98-107); Calcium 8.8 mg/dL (8.4-10.2); Carbon Dioxide 26 mmol/L (22-30); Creatinine 1 0.72 mg/dL (0.66-1.25); Glucose 105 mg/dL (74-106); LIPASE 65 U/L (23-300); Potassium 3.7 mmol/L (3.5-5.1); SGOT/AST 65 U/L (17-59); SGPT/ALT 45 U/L (0-50); SODIUM 137 mmol/L (137-145); Total Protein 7.7 g/dL (6.3-8.2)
[2019-11-22] MEDS: ELAVIL 25 MG PO SCH (21:59)
[2019-11-22] MEDS: Cyclobenzaprine 10 MG PO PRN (22:42)
[2019-11-23] MEDS: SODIUM CHLORIDE 0.9% IV SCH (05:37)
[2019-11-23] MEDS: MERREM IV SCH (05:37)
[2019-11-23 07:26] VITALS: O2SAT 96
[2019-11-23] MEDS: Cymbalta 30 MG Capsule PO SCH (09:08)
[2019-11-23] MEDS: hydroDIURIL 25 MG PO SCH (09:09)
[2019-11-23] MEDS: Neurontin 400 MG PO SCH (09:09)
[2019-11-23] MEDS: Vasotec 10 MG PO SCH (09:09)
[2019-11-23] MEDS: Protonix 40MG Tablet PO SCH (09:09)
[2019-11-23] MEDS: Wellbutrin SR 150 MG PO SCH (09:10)
[2019-11-23] MEDS: OXYCODONE-ACETAMINOPHEN 10-325 PO PRN (11:43)
[2019-11-23 11:44] LABS: Hematocrit 42.3 % (42-50); Hemoglobin 14.2 gm/dl (12.5-18.0); Mean Cell Volume 85.3 fl (78-100); Mean Corpuscular Hemoglobin 28.6 pg (26-32); Mean Corpuscular Hgb Concent. 33.6 g/dl (32-36); Mean Platelet Volume 9.6 fl (7.5-11.0); Platelet Count 231 K/mm3 (150-450); Red Blood Count 4.96 M/mm3 (4.1-5.6); Red Cell Distribution Width 14.3 % (11.5-14.0)
[2019-11-23 11:46] LABS: ALBUMIN 3.8 g/dL (3.5-5.0); ALKALINE PHOSPHATASE 62 U/L (38-126); AMYLASE 49 U/L (30-110); ANION GAP 14.2 MEQ/L (5-15); BLOOD UREA NITROGEN 17 mg/dL (9-20); CHLORIDE 102 mmol/L (98-107); Carbon Dioxide 24 mmol/L (22-30); Creatinine 1 0.62 mg/dL (0.66-1.25); Glucose 135 mg/dL (74-106); LIPASE 61 U/L (23-300); Potassium 3.5 mmol/L (3.5-5.1); SGOT/AST 50 U/L (17-59); SGPT/ALT 50 U/L (0-50); SODIUM 137 mmol/L (137-145); Total Protein 7.5 g/dL (6.3-8.2)
[2019-11-23 11:47] VITALS: BP 126/64; PULSE 91
--- NOTE | 2019-11-23 12:23 | PCM.DS ---
Discharge Summary Date of Admission: 11/20/19 12:40 Admitting Physician: VANNA TALAVERA DO Primary Care Provider: [facility] Allergies Allergies No Known Drug Allergies Allergy (Unverified 09/10/17 00:09) Hospital Summary - Hospital Course Hospital Course: Patient was admitted through ER for intractable back pain and LLE pain,known DDD from remote injury.He is followed by [facility] and Pain Management Dr Pulido. He had gradual improvement of pain with epidural steroid injection given this hospitalization. Patient gave Hx LUQ pain after eating x 1 month that was getting worse during hospitalization . Work up showed inflamed tail of pancreas, gallstones without billiary duct dilation.His WBC was elevated and he had low grade fever,responded to a course of IV Meropenem. WBC improved from 14,600 to 9 ,000 .He also had hematuria on admission [address] for renal stones. Patient has improved and is safe to ambulate but is not pain free and will require more time off work. He will have his work fax FMLA papers to me tomorrow at [facility]. His pain meds per Dr Pulido who will be seeing patient in Clinic on 12/07/2019 and signing a pain cotract at that time. I gave written Rx for [place] 5mg q 6 hours -7 day RX and he will need a second 7 day Rx before his appt with Dr Pulido and can contact my office for that next wee. This is per Dr Pulido's instruction. Patient will be contacted by his PCP at [facility] for GI referral. He will contact me if he has any worsening of symptoms before his GI appt. Patient will be discharged home .His will be driving him home and monitoring him. - Vitals & Intake/Output Vital Signs: Vital Signs Temperature 97.6 F 11/23/19 11:46 Pulse Rate 91 H 11/23/19 11:46 Respiratory Rate 22 11/23/19 11:46 Blood Pressure 126/64 11/23/19 11:46 O2 Sat by Pulse Oximetry 96 11/23/19 11:46 Intake & Output: Intake & Output 11/21/19 11/22/19 11/23/19 11/24/19 11:59 11:59 11:59 11:59 Intake Total 1884 6140 1370 Output Total 1500 900 800 Balance 384 5240 570 Weight 167.829 kg - Lab Result Diagrams: 11/23/19 11:20 11/23/19 11:20 Lab Results-Last 24 Hrs: Lab Results-Last 24 Hours 11/22/19 11/22/19 11/22/19 Range/Units 13:34 13:34 13:34 WBC 12.4 H (4.0-10.5) K/mm3 RBC 4.83 (4.1-5.6) M/mm3 Hgb 13.8 (12.5-18.0) gm/dl Hct 41.8 L (42-50) % MCV 86.5 (78-100) fl MCH 28.6 (26-32) pg MCHC 33.0 (32-36) g/dl RDW 14.7 H (11.5-14.0) % Plt Count 223 (150-450) K/mm3 MPV 9.4 (7.5-11.0) fl Gran % 69.4 H (36.0-66.0) % Eos # (Auto) 0.39 (0-0.5) Absolute Lymphs (auto) 2.26 (1.0-4.6) Absolute Monos (auto) 1.13 (0.0-1.3) Lymphocytes % 18.2 L (24.0-44.0) % Monocytes % 9.1 (0.0-12.0) % Eosinophils % 3.1 (0.00-5.0) % Basophils % 0.2 (0.0-0.4) % Absolute Granulocytes 8.59 H (1.4-6.9) Basophils # 0.02 (0-0.4) Sodium 137 (137-145) mmol/L Potassium 3.7 (3.5-5.1) mmol/L Chloride 101 (98-107) mmol/L Carbon Dioxide 26 (22-30) mmol/L Anion Gap 13.2 (5-15) MEQ/L BUN 13 (9-20) mg/dL Creatinine 0.72 (0.66-1.25) mg/dL Estimated GFR > 60.0 ML/MIN Glucose 105 (74-106) mg/dL Hemoglobin A1c 6.04 H (4.5-6.0) % Calcium 8.8 (8.4-10.2) mg/dL Total Bilirubin 1.30 (0.2-1.3) mg/dL AST 65 H (17-59) U/L ALT 45 (0-50) U/L Alkaline Phosphatase 62 (38-126) U/L Serum Total Protein 7.7 (6.3-8.2) g/dL Albumin 4.0 (3.5-5.0) g/dL Amylase 42 (30-110) U/L Lipase 65 (23-300) U/L 11/23/19 11/23/19 Range/Units 11:20 11:20 WBC 9.0 (4.0-10.5) K/mm3 RBC 4.96 (4.1-5.6) M/mm3 Hgb 14.2 (12.5-18.0) gm/dl Hct 42.3 (42-50) % MCV 85.3 (78-100) fl MCH 28.6 (26-32) pg MCHC 33.6 (32-36) g/dl RDW 14.3 H (11.5-14.0) % Plt Count 231 (150-450) K/mm3 MPV 9.6 (7.5-11.0) fl Gran % (36.0-66.0) % Eos # (Auto) (0-0.5) Absolute Lymphs (auto) (1.0-4.6) Absolute Monos (auto) (0.0-1.3) Lymphocytes % (24.0-44.0) % Monocytes % (0.0-12.0) % Eosinophils % (0.00-5.0) % Basophils % (0.0-0.4) % Absolute Granulocytes (1.4-6.9) Basophils # (0-0.4) Sodium 137 (137-145) mmol/L Potassium 3.5 (3.5-5.1) mmol/L Chloride 102 (98-107) mmol/L Carbon Dioxide 24 (22-30) mmol/L Anion Gap 14.2 (5-15) MEQ/L BUN 17 (9-20) mg/dL Creatinine 0.62 L (0.66-1.25) mg/dL Estimated GFR > 60.0 ML/MIN Glucose 135 H (74-106) mg/dL Hemoglobin A1c (4.5-6.0) % Calcium 9.0 (8.4-10.2) mg/dL Total Bilirubin 0.80 (0.2-1.3) mg/dL AST 50 (17-59) U/L ALT 50 (0-50) U/L Alkaline Phosphatase 62 (38-126) U/L Serum Total Protein 7.5 (6.3-8.2) g/dL Albumin 3.8 (3.5-5.0) g/dL Amylase 49 (30-110) U/L Lipase 61 (23-300) U/L - Radiology Exams Ordered Rad Exams-Entire Visit: Radiology Procedures Category Date Time Status ABDOMEN AND PELVIS W/0 CONTRAS [CT] Routine Exams 11/21/19 17:00 Completed UPPER ABDOMEN [US] Routine Exams 11/22/19 08:00 Completed - Procedures and Test Procedures and Tests throughout Hospitalization: Therapy Orders & Screens 11/20/19 13:12 OT Screen per Nursing Assess Comment: Protocol Order Physician Instructions: Greater than 3 points order OT Admission Screening Reason For Exam: Triggered on Admission Diagnosis: pain Open Wound/Cellutlitis/Pressure Ulcers: No Acute Fx/ORIF/Change in wt bearing status: No Severe MUSCULOSKELETAL pain: Yes ADL Dysfunction: Yes Acute CVA w/Hemiparesis/Hemiplegia: No Decreased Functional Mobility/Strength: Yes Sprain/Strain: No Acute Post-op Mobility Dysfunction: No Total Points: 9 PT Screen per Nursing Assess ONCE Comment: Protocol Order Physician Instructions: Greater than 3 points order PT Admission Screenin Reason For Exam: Triggered on Admission Diagnosis: pain Open Wound/Cellutlitis/Pressure Ulcers: No Acute Fx/ORIF/Change in wt bearing status: No Severe MUSCULOSKELETAL pain: Yes ADL Dysfunction: Yes Acute CVA w/Hemiparesis/Hemiplegia: No Decreased Functional Mobility/Strength: Yes Sprain/Strain: No Acute Post-op Mobility Dysfunction: No Total Points: 9 11/20/19 18:51 BiPap/CPAP ROUTINE Comment: Diagnosis: pain Discharge Exam General Appearance: no apparent distress (sitting in recliner chair), other ( walked in halls with nurse this morning,stable gait but pain LLE after a few minutes) Neurologic Exam: alert, oriented x 3 Respiratory Exam: other (no dyspnea or cough) Gastrointestinal/Abdomen Exam: soft, tenderness (mild LUQ no guarding) Final Diagnosis/Problem List - Final Discharge Diagnosis/Problem (1) Intractable low back pain Current Visit: Yes Status: Acute Code(s): M54.5 - LOW BACK PAIN (2) Lumbar radiculopathy Current Visit: Yes Status: Chronic Code(s): M54.16 - RADICULOPATHY, LUMBAR REGION (3) HTN (hypertension) Current Visit: Yes Status: Acute Code(s): I10 - ESSENTIAL (PRIMARY) HYPERTENSION (4) Hematuria Current Visit: Yes Status: Acute Code(s): R31.9 - HEMATURIA, UNSPECIFIED (5) Family history of cancer of the kidney Current Visit: Yes Status: Chronic Code(s): Z80.51 - FAMILY HISTORY OF MALIGNANT NEOPLASM OF KIDNEY (6) Family history of prostate cancer in father Current Visit: Yes Status: Chronic Code(s): Z80.42 - FAMILY HISTORY OF MALIGNANT NEOPLASM OF PROSTATE (7) Left upper quadrant abdominal pain of unknown etiology Current Visit: Yes Status: Acute Code(s): R10.12 - LEFT UPPER QUADRANT PAIN (8) GERD (gastroesophageal reflux disease) Current Visit: Yes Status: Chronic Code(s): K21.9 - GASTRO-ESOPHAGEAL REFLUX DISEASE WITHOUT ESOPHAGITIS (9) Pancreatitis, acute Current Visit: Yes Status: Acute Code(s): K85.90 - ACUTE PANCREATITIS WITHOUT NECROSIS OR INFECTION, UNSP (10) Cholelithiasis Current Visit: Yes Status: Acute - Discharge Disposition: Home, Self-Care Condition: Stable Prescriptions: No Action Omeprazole 20 MG [Prilosec 20 mg] 20 mg PO DAILY Gabapentin [Gralise] 600 mg PO BID Enalapril Maleate 5 mg [Vasotec 5 MG] 5 mg PO DAILY #30 tablet hydroCHLOROthiazide [Hydrochlorothiazide] 25 mg PO DAILY Prazosin HCl 3 mg PO HS Duloxetine HCl 120 mg PO DAILY Bupropion HCl 150 mg Sr [Wellbutrin SR 150 MG] 450 mg PO DAILY Zolpidem Tartrate [Zolpidem Tartrate ER] 12.5 mg PO HS PRN PRN Reason: Anxiety Additional Instructions: Follow up with: ONELIA PULIDO MD [CONSULTING PHYSICIAN] - 12/07/19 10:00 am
[2019-11-23 14:25] LABS: BAND 1 % (0.0-2.0); Eosinophil 1 % (0.00-3.0); Lymphocytes 18 % (24-44); Monocyte 4 % (0.0-12.0); Neutrophils 76 % (36.-66.); Platelet Estimate NORMAL (NORMAL); Total Cells Counted 100
== END 2019-11-23 12:45 | disposition home or self-care (01) ==
LOC: ED 09:46 → MED SURG 12:40
PROVIDERS: ADMIT Family Medicine; ATTEND Family Medicine
DX: M54.5 Low back pain (principal); M54.16 Radiculopathy, lumbar region; M51.36 Other intervertebral disc degeneration, lumbar region; I10 Essential (primary) hypertension; R31.9 Hematuria, unspecified; M79.605 Pain in left leg; R10.12 Left upper quadrant pain; K21.9 Gastro-esophageal reflux disease without esophagitis; K85.90 Acute pancreatitis without necrosis or infection, unspecified; K80.20 Calculus of gallbladder without cholecystitis without obstruction; Z80.51 Family history of malignant neoplasm of kidney; Z80.42 Family history of malignant neoplasm of prostate; Z79.899 Other long term (current) drug therapy
CPT/HCPCS: 36000; 36415; 62321; 72100; 74176; 76700; 77003; 80048; 80053; 80307; 81001; 82150; 83036; 83690; 84153; 84154; 84443; 85025; 87040; 93971; 94762; 96372; 96374; 99285; G0378; 99214; J1030; J1100; J1170; J1885; J2001; J2270; J2704; Q9966; A9270-GY

== ENCOUNTER 2019-12-27 10:31 | Day surgery (SDC) | payer BC, OTHER ==
[2019-12-27] MEDS ORDERED: Xylocaine 1% Vial 30 ML PF IJ ONE (10:32)
[2019-12-27] MEDS ORDERED: Depo-Medrol 40 MG/ML IM ONE (10:32)
[2019-12-27] MEDS ORDERED: Sodium Chloride 0.9(Preservative Free) 10 ML IJ ONE (10:32)
[2019-12-27] MEDS ORDERED: Ketamine HCl 50 MG/ML ONE (11:54)
[2019-12-27] MEDS ORDERED: DIPRIVAN 200 MG/20 ML IV ONE (11:54)
[2019-12-27] MEDS ORDERED: Lactated Ringers 1,000 ML IV ONE (15:18)
--- NOTE | 2019-12-27 16:31 | XRAY ---
33 seconds fluoroscopy time in surgery for caudal LOULOU.
--- NOTE | 2019-12-30 19:38 | XRAY ---
Indication: Caudal LOULOU. Intraoperative fluoroscopy was provided for 33 seconds. 2 digital spot images submitted for evaluation reveal posterior needle tip directed superiorly just posterior to the mid aspect of the sacrum. On the PA view, contrast has been injected into the caudal space. Correlate with intraoperative findings/report.
== END 2019-12-27 12:25 | disposition home or self-care (01) ==
LOC: SDC-PAIN 10:31
PROVIDERS: ATTEND Psychiatry & Neurology Pain Medicine
DX: M54.16 Radiculopathy, lumbar region (principal); I10 Essential (primary) hypertension; G47.30 Sleep apnea, unspecified; F41.8 Other specified anxiety disorders; K21.9 Gastro-esophageal reflux disease without esophagitis; Z79.899 Other long term (current) drug therapy
CPT/HCPCS: 62323; 72220; 77003; J1030; J2001; J2704; Q9966

== ENCOUNTER 2022-03-30 21:19 | Emergency (ER) | payer OTHER, BC ==
[2022-03-30] MEDS ORDERED: Hydromorphone 1 mg/ml Injection IV ONE (22:05)
[2022-03-30] MEDS ORDERED: Sodium Chloride 0.9% 1000 ML 1,000 ML IV STA (22:05)
[2022-03-30] MEDS ORDERED: PROTONIX 40 MG IV IV ONE ×2 (22:05→22:31)
[2022-03-30] MEDS ORDERED: Zofran 4 MG/2 ML VIAL IV ONE (22:05)
[2022-03-30] MEDS ORDERED: Sodium Chloride 0.9% 1000 ML 1,000 ML ONE (22:31)
[2022-03-30] MEDS ORDERED: Hydromorphone 1 mg/ml Injection ONE (22:31)
[2022-03-30] MEDS ORDERED: Zofran 4 MG/2 ML VIAL ONE (22:31)
[2022-03-30 22:35] LABS: Absolute Neutrophil Ct (ANC) 7.86 x10^3/uL (1.4-6.9); Basophil (Absolute #) 0.03 x10^3/uL (0-0.4); Eosinophil % 1.3 % (0.00-5.0); Eosinophil (Absolute #) 0.17 x10^3/uL (0-0.5); Hematocrit 47.4 % (42-50); Hemoglobin 16.2 g/dL (12.5-18.0); Lymphocyte (Absolute #) 4.16 x10^3/uL (1.0-4.6); Lymphocytes % 31.5 % (24.0-44.0); Mean Cell Volume 86.2 fL (78-100); Mean Corpuscular Hemoglobin 29.5 pg (26-32); Mean Corpuscular Hgb Concent. 34.2 g/dL (32-36); Mean Platelet Volume 9.5 fL (7.5-11.0); Monocytes % 6.8 % (0.0-12.0); Neutrophil % 59.4 % (36.0-66.0); Platelet Count 240 x10^3/uL (150-450); White Blood Count 13.2 x10^3/uL (4.0-10.5)
[2022-03-30 22:43] LABS: ALBUMIN 4.4 g/dL (3.5-5.0); ALKALINE PHOSPHATASE 96 U/L (38-126); AMYLASE 230 U/L (30-110); ANION GAP 13.3 MEQ/L (5-15); BLOOD UREA NITROGEN 9 mg/dL (9-20); CHLORIDE 98 mmol/L (98-107); Calcium 9.4 mg/dL (8.4-10.2); Carbon Dioxide 27 mmol/L (22-30); Creatinine 1 0.63 mg/dL (0.66-1.25); EST GLOMERULAR FILTRATION RATE > 60.0 ML/MIN; Glucose 145 mg/dL (74-106); INR 1.08 (0.8-3.0); LIPASE 1279 U/L (23-300); PROTIME 11.4 SECONDS (9.4-12.5); Potassium 3.6 mmol/L (3.5-5.1); SGOT/AST 47 U/L (17-59); SGPT/ALT 90 U/L (0-50); SODIUM 135 mmol/L (137-145); Total Protein 8.1 g/dL (6.3-8.2)
[2022-03-30 23:51] VITALS: O2SAT 92
--- NOTE | 2022-03-31 00:12 | ERPHSYRPT ---
- History of Present Illness Time Seen by Provider: 03/30/22 21:40 Historian: patient, family Patient Subjective Stated Complaint: left sided abdominal pain described as sharp that radiates to left side of chest Triage Nursing Assessment: Pt ambulated to room. He was grimacing and guarding abdomen. A&O X 3. Skin color flushed. Respirations unlabored, but breathing rapidly while ambulating d/t reported pain. Once lying in bed RR 20. Lung sounds clear throughout. Bowel sounds present but hypoactive throughout. LBM 03/30/22 but smaller than normal. Physician History: Is a 41-year-old male who presents with a complaint of abdominal pain left-sided radiates up into the chest and through the back. He has a history of pancreatitis and says this pain is very similar to his previous episodes. This started yesterday afternoon. He has been taking OTC meds he denies any fever chills sweats he has had some nausea no vomiting and no diarrhea. He usually seeks his care at the [place] in [place]. Timing/Duration: yesterday Activities at Onset: none Quality: cramping Abdominal Pain Onset Location: generalized abdomen Pain Radiation: back Severity of Pain-Max: moderate Severity of Pain-Current: moderate Modifying Factors: Improves With: eating, lying down, position Associated Symptoms: nausea Allergies/Adverse Reactions: No Known Drug Allergies Allergy (Verified 03/30/22 21:30) Home Medications: Omeprazole 20 MG [Prilosec 20 mg] 40 mg PO DAILY 09/10/17 [History] Prazosin HCl 1 mg PO HS PRN PRN 11/20/19 [History] Allopurinol 100 mg [Zyloprim 100 mg] 100 mg PO DAILY 03/30/22 [History] Atorvastatin Calcium 10 mg PO QHS 03/30/22 [History] Gabapentin 1,200 mg PO BID 03/30/22 [History] Indomethacin 50 mg PO TID 03/30/22 [History] Metformin HCl [Metformin HCl ER] 750 mg PO QHS 03/30/22 [History] Modafinil 100 mg [Provigil 100MG Tablet] 400 mg PO DAILY 03/30/22 [History] Venlafaxine HCl [Effexor Xr] 75 mg PO BID 03/30/22 [History] Zolpidem Tartrate [Ambien Cr] 12.5 mg PO HS PRN PRN 03/30/22 [History] lisinopriL [Lisinopril] 40 mg PO DAILY 03/30/22 [History] Hx Tetanus, Diphtheria Vaccination/Date Given: Yes Hx Influenza Vaccination/Date Given: No Hx Pneumococcal Vaccination/Date Given: No Immunizations Up to Date: Yes Travel Risk - International Travel Have you traveled outside of the country in past 3 weeks: No - Coronavirus Screening Are you exhibiting any of the following symptoms?: No Close contact with a COVID-19 positive Pt in past 14-21 Days: No - Vaccine Status Have you recieved a Covid-19 vaccination: Yes Bulk Clerk: Moderna - Vaccination Dates Date of 2cond Vaccination (if applicable): unknown - Review of Systems Constitutional: No Fever, No Chills Eyes: No Symptoms Ears, Nose, & Throat: No Symptoms Respiratory: No Cough, No Dyspnea Cardiac: No Chest Pain, No Edema, No Syncope Abdominal/Gastrointestinal: Abdominal Pain, Nausea, No Vomiting, No Diarrhea Genitourinary Symptoms: No Dysuria Musculoskeletal: No Back Pain, No Neck Pain Skin: No Rash Neurological: No Dizziness, No Focal Weakness, No Sensory Changes Psychological: No Symptoms Endocrine: No Symptoms All Other Systems: Reviewed and Negative - Past Medical History Pertinent Past Medical History: Yes Neurological History: Peripheral Neuropathy ENT History: No Pertinent History Cardiac History: Hypertension Respiratory History: Sleep Apnea Endocrine Medical History: No Pertinent History Musculoskeletal History: Degenerative Disk Disease, Other GI Medical History: GERD, Gallbladder Disease, Pancreatitis History: No Pertinent History Psycho-Social History: Anxiety, Depression, Other Male Reproductive Disorders: No Pertinent History Other Medical History: PTSD. slipped disc, bulging disc, herniated disc, nerve in lower spine - Past Surgical History Past Surgical History: Yes Neuro Surgical History: No Pertinent History Cardiac: No Pertinent History Respiratory: No Pertinent History Gastrointestinal: Cholecystectomy Genitourinary: No Pertinent History Musculoskeletal: No Pertinent History Male Surgical History: No Pertinent History Other Surgical History: . - Social History Smoking Status: Former smoker How long have you smoked: 20 years Exposure to second hand smoke: No Drug Use: none Patient Lives Alone: No - Nursing Vital Signs Nursing Vital Signs: Initial Vital Signs Temperature 98.7 F 03/30/22 21:30 Pulse Rate 118 H 03/30/22 21:30 Respiratory Rate 36 H 03/30/22 21:30 Blood Pressure 164/96 03/30/22 21:30 O2 Sat by Pulse Oximetry 94 L 03/30/22 21:30 Pain Scale Pain Intensity 3 - Physical Exam General Appearance: moderate distress, alert Eye Exam: PERRL/EOMI, eyes nml inspection Ears, Nose, Throat Exam: normal ENT inspection, pharynx normal, moist mucous membranes Neck Exam: normal inspection, non-tender, supple, full range of motion Respiratory Exam: normal breath sounds, lungs clear, No respiratory distress Cardiovascular Exam: regular rate/rhythm, normal heart sounds Gastrointestinal/Abdomen Exam: tenderness, guarding, No mass, No rebound Back Exam: normal inspection, normal range of motion, No CVA tenderness, No vertebral tenderness Extremity Exam: normal inspection, normal range of motion, pelvis stable Neurologic Exam: alert, oriented x 3, cooperative, normal mood/affect, nml cerebellar function, sensation nml, No motor deficits Skin Exam: normal color, warm, dry SpO2: 92 - Course Nursing assessment & vital signs reviewed: Yes EKG Interpreted by Me: RATE ([id number]), Sinus Tach, NORMAL AXIS, NORMAL INTERVALS, Non-specific ST Changes - CT Exams Abdomen/Pelvis CT Interpretation: Tele-radiologist Report Ordered Tests: Active Orders 24 hr Category Date Time Status EKG-ER Only STAT Care 03/30/22 22:05 Active IV Insertion STAT Care 03/30/22 22:05 Active ABDOMEN AND PELVIS W CONTRAST [CT] Stat Exams 03/30/22 22:06 Taken AMYLASE Stat Lab 03/30/22 22:32 Completed CBC W DIFF Stat Lab 03/30/22 22:32 Completed CMP Stat Lab 03/30/22 22:32 Completed LIPASE Stat Lab 03/30/22 22:32 Completed Lactic Acid Stat Lab 03/30/22 22:22 Completed PROTIME WITH INR Stat Lab 03/30/22 22:32 Completed TROPONIN Q4H Lab 03/30/22 22:15 Completed TROPONIN Q4H Lab 03/31/22 02:15 Ordered TROPONIN Q4H Lab 03/31/22 06:15 Ordered UA W/RFX CULTURE Stat Lab 03/30/22 Ordered Medication Summary Discontinued Medications Generic Name Dose Route Start Last Admin Trade Name Freq PRN Reason Stop Dose Admin Hydromorphone HCl 1 mg 03/30/22 22:05 03/30/22 22:33 Hydromorphone 1 Mg/1ml Inj 1 Mg/Ml Syringe IV 03/30/22 22:06 1 mg STAT ONE Administration Hydromorphone HCl Confirm 03/30/22 22:31 Hydromorphone 1 Mg/1ml Inj 1 Mg/Ml Syringe Administered 03/30/22 22:32 Dose 1 mg .ROUTE .STK-MED ONE Sodium Chloride 1,000 mls @ 999 mls/hr 03/30/22 22:05 03/30/22 22:33 Sodium Chloride 0.9% 1000 Ml IV 03/30/22 23:05 999 mls/hr .Q1H1M STA Administration Sodium Chloride Confirm 03/30/22 22:31 Sodium Chloride 0.9% 1000 Ml Administered 03/30/22 22:32 Dose 1,000 mls @ ud .ROUTE .STK-MED ONE Ondansetron HCl 4 mg 03/30/22 22:05 03/30/22 22:33 Ondansetron Hcl 4 Mg/2 Ml Vial IV 03/30/22 22:06 4 mg STAT ONE Administration Ondansetron HCl Confirm 03/30/22 22:31 Ondansetron Hcl 4 Mg/2 Ml Vial Administered 03/30/22 22:32 Dose 4 mg .ROUTE .STK-MED ONE Pantoprazole Sodium 40 mg 03/30/22 22:05 03/30/22 22:33 Pantoprazole 40 Mg Vial IV 03/30/22 22:06 40 mg STAT ONE Administration Pantoprazole Sodium Confirm 03/30/22 22:31 Pantoprazole 40 Mg Vial Administered 03/30/22 22:32 Dose 40 mg IV .STK-MED ONE Lab/Rad Data: Laboratory Result Diagrams 03/30/22 22:32 03/30/22 22:32 Laboratory Results 03/30/22 03/30/22 03/30/22 Range/Units 22:32 22:32 22:32 WBC 13.2 H (4.0-10.5) x10^3/uL RBC 5.50 (4.1-5.6) x10^6/uL Hgb 16.2 (12.5-18.0) g/dL Hct 47.4 (42-50) % MCV 86.2 (78-100) fL MCH 29.5 (26-32) pg MCHC 34.2 (32-36) g/dL RDW 13.0 (11.5-14.0) % Plt Count 240 (150-450) x10^3/uL MPV 9.5 (7.5-11.0) fL Gran % 59.4 (36.0-66.0) % Immature Gran % (Auto) 0.8 H (0.00-0.4) % Nucleat RBC Rel Count 0.0 (0.00-0.1) % Eos # (Auto) 0.17 (0-0.5) x10^3/uL Immature Gran # (Auto) 0.10 H (0.00-0.03) x10^3u/L Absolute Lymphs (auto) 4.16 (1.0-4.6) x10^3/uL Absolute Monos (auto) 0.90 (0.0-1.3) x10^3/uL Absolute Nucleated RBC 0.00 (0.00-0.01) x10^3u/L Lymphocytes % 31.5 (24.0-44.0) % Monocytes % 6.8 (0.0-12.0) % Eosinophils % 1.3 (0.00-5.0) % Basophils % 0.2 (0.0-0.4) % Absolute Granulocytes 7.86 H (1.4-6.9) x10^3/uL Basophils # 0.03 (0-0.4) x10^3/uL PT 11.4 (9.4-12.5) SECONDS INR 1.08 (0.8-3.0) Sodium 135 L (137-145) mmol/L Potassium 3.6 (3.5-5.1) mmol/L Chloride 98 (98-107) mmol/L Carbon Dioxide 27 (22-30) mmol/L Anion Gap 13.3 (5-15) MEQ/L BUN 9 (9-20) mg/dL Creatinine 0.63 L (0.66-1.25) mg/dL Estimated GFR > 60.0 ML/MIN Glucose 145 H (74-106) mg/dL Lactic Acid (0.4-2.0) Calcium 9.4 (8.4-10.2) mg/dL Total Bilirubin 1.10 (0.2-1.3) mg/dL AST 47 (17-59) U/L ALT 90 H (0-50) U/L Alkaline Phosphatase 96 (38-126) U/L Troponin I (0.000-0.034) ng/mL Serum Total Protein 8.1 (6.3-8.2) g/dL Albumin 4.4 (3.5-5.0) g/dL Amylase 230 H (30-110) U/L Lipase 1279 H (23-300) U/L 03/30/22 03/30/22 Range/Units 22:22 22:15 WBC (4.0-10.5) x10^3/uL RBC (4.1-5.6) x10^6/uL Hgb (12.5-18.0) g/dL Hct (42-50) % MCV (78-100) fL MCH (26-32) pg MCHC (32-36) g/dL RDW (11.5-14.0) % Plt Count (150-450) x10^3/uL MPV (7.5-11.0) fL Gran % (36.0-66.0) % Immature Gran % (Auto) (0.00-0.4) % Nucleat RBC Rel Count (0.00-0.1) % Eos # (Auto) (0-0.5) x10^3/uL Immature Gran # (Auto) (0.00-0.03) x10^3u/L Absolute Lymphs (auto) (1.0-4.6) x10^3/uL Absolute Monos (auto) (0.0-1.3) x10^3/uL Absolute Nucleated RBC (0.00-0.01) x10^3u/L Lymphocytes % (24.0-44.0) % Monocytes % (0.0-12.0) % Eosinophils % (0.00-5.0) % Basophils % (0.0-0.4) % Absolute Granulocytes (1.4-6.9) x10^3/uL Basophils # (0-0.4) x10^3/uL PT (9.4-12.5) SECONDS INR (0.8-3.0) Sodium (137-145) mmol/L Potassium (3.5-5.1) mmol/L Chloride (98-107) mmol/L Carbon Dioxide (22-30) mmol/L Anion Gap (5-15) MEQ/L BUN (9-20) mg/dL Creatinine (0.66-1.25) mg/dL Estimated GFR ML/MIN Glucose (74-106) mg/dL Lactic Acid 1.3 (0.4-2.0) Calcium (8.4-10.2) mg/dL Total Bilirubin (0.2-1.3) mg/dL AST (17-59) U/L ALT (0-50) U/L Alkaline Phosphatase (38-126) U/L Troponin I < 0.012 (0.000-0.034) ng/mL Serum Total Protein (6.3-8.2) g/dL Albumin (3.5-5.0) g/dL Amylase (30-110) U/L Lipase (23-300) U/L - Progress Progress: improved - Departure Departure Disposition: Home Clinical Impression: Pancreatitis Condition: Stable Critical Care Time: No Referrals: [facility],'[facility] [Primary Care Provider] - Follow up/PCP as directed Instructions: Pancreatitis (DC) Prescriptions: Ondansetron ODT 4 MG [Zofran Odt 4 mg] 4 mg PO Q6H PRN PRN #10 tablet PRN Reason: Vomiting Oxycodone/APAP 5 mg/325 mg [Percocet Tablet 5/325Mg] 1 tab PO Q6H 3 Days #12 tablet MDD 4 PANTOPRAZOLE 40 mg Tablet [Protonix 40MG Tablet] 40 mg PO DAILY 15 Days #15 tab
[2022-03-31] MEDS ORDERED: Hydromorphone 1 mg/ml Injection IV ONE (00:19)
[2022-03-31] MEDS ORDERED: Hydromorphone 1 mg/ml Injection ONE (00:21)
[2022-03-31 00:31] VITALS: BP 121/77; PULSE 99
--- NOTE | 2022-04-01 21:44 | XRAY ---
Exam: CT of the abdomen and pelvis with IV contrast from 03/30/2022. CTDI: 22.49 mGy Comparison: CT of the abdomen and pelvis without IV contrast from 11/21/2019. Indication: 41-year-old male with left-sided abdominal pain and left-sided flank pain; nausea and constipation. Technique: Post-IV contrast axial images were obtained through the abdomen and pelvis during automated injection of 100 cc of Isovue 370 contrast material. Reconstructed coronal and sagittal images were created and reviewed. No oral contrast was given. Findings: The lung bases reveals some scattered mild linear scarring or atelectasis within both posterior lung bases, left greater than right. I see no posterior pleural fluid. The transverse heart size is normal. I again see diffuse hepatic steatosis. The liver appears mildly enlarged measuring at least 21.6 cm in greatest craniocaudal dimension on coronal image #88. I believe this is slightly smaller than that noted on 11/21/2019 when it measured 23.8 cm in length. No focal hepatic mass is seen. No intrahepatic biliary duct distention is seen. Surgical clips consistent with interval cholecystectomy are seen. I note at least 3 lymph nodes within the danuta hepatis just to the right of midline within the deep upper abdomen. The short axis of these lymph nodes measures about 1.5 cm in diameter each. I believe they are slightly larger than that seen on 11/21/2019. It is possible these are reactive lymph nodes, as I again note increased density within the pancreatic tail with some surrounding peripancreatic inflammation and thickening of Gerota's fascia and the lateroconal fascia. This is suggestive of an inflammatory process and may relate to pancreatitis of the tail region of the pancreas. The area of increased density within the pancreatic tail measures about 6.2 cm x 3.0 cm in cross section on axial image #31. This might represent a focal phlegmon. A distinct abscess or pseudocyst is not seen. No pancreatic calcifications are seen. No pancreatic duct distention is seen. The possibility of a mass is not completely excluded, but considered less likely. Consider further evaluation with a follow-up MRI of the abdomen with attention to the pancreas. I again see mild splenomegaly with the spleen measuring 15.1 cm in greatest craniocaudal dimension on coronal image #114. This is essentially unchanged. No splenic mass is seen. The adrenal glands appear unremarkable. The kidneys appear of unremarkable size and configuration. I cannot exclude a tiny nonobstructing stone within the upper pole of the left kidney on coronal image #13. I believe this is also seen on sagittal image #154. No renal mass or hydronephrosis is seen. The kidneys function on delayed images. The ureters are of normal diameter and reveal no definite ureterolith. No urinary bladder stone is seen. No abdominal aortic aneurysm is seen. I detect some small shotty nonspecific lymph nodes within the periaortic and pericaval regions which I believe are unchanged. Definite pathological retroperitoneal lymphadenopathy is not seen. There is abundant intraperitoneal and subcutaneous fat. It appears the patient's prior fat-containing umbilical hernia has been surgically corrected. There is no free air or bowel containing ventral hernia. Scattered stool is seen throughout the colon. No abnormal bowel distention or bowel wall thickening is seen. Some mild diverticulosis without evidence of diverticulitis is seen within the descending colon and proximal sigmoid colon. I see no findings to suggest appendicitis within the right lower quadrant. The urinary bladder is mildly distended and appears unremarkable. This represents improvement from 11/21/2019 when it was markedly distended. The seminal vesicles are symmetric. The prostate gland appears of normal size measuring about 4.1 cm in width on axial image #90. A few nonspecific reactive lymph nodes are noted within each groin. The skeleton reveals no acute fracture or aggressive bone lesion. There is a new small amount of vacuum disc phenomena at L5-S1 with mild narrowing of the L5-S1 interspace height and marginal vertebral endplate spurring indicating mild degenerative disc disease at this level. Impression: 1. I again see increased density within the pancreatic tail with surrounding peripancreatic inflammation and thickening of Gerota's fascia and the lateroconal fascia on the left. This is most suggestive of pancreatitis within the pancreatic tail. A distal pancreatic tail mass is less likely, but not completely excluded. Consider further evaluation with a follow-up pancreatic MRI. 2. Fatty hepatomegaly and mild splenomegaly are again seen representing no significant change. 3. The patient has undergone interval cholecystectomy and umbilical hernia repair. 4. There appear to be at least 3 moderately prominent lymph nodes within the danuta hepatis which each measure up to 1.5 cm in short axis. These appear slightly more prominent as compared to 11/21/2019. These might be reactive secondary to the probable pancreatitis within the tail region. 5. Tiny nonobstructing calculus within the upper pole of the left kidney and mild diverticulosis within the descending colon and proximal sigmoid colon without evidence of concomitant diverticulitis. 6. There appears to be some mild bibasilar linear atelectasis/scarring posteriorly, left greater than right.
== END 2022-03-31 00:40 | disposition home or self-care (01) ==
LOC: ED 21:19
DX: K85.90 Acute pancreatitis without necrosis or infection, unspecified (principal); R10.84 Generalized abdominal pain; R11.0 Nausea; I10 Essential (primary) hypertension; Z79.899 Other long term (current) drug therapy; Z79.891 Long term (current) use of opiate analgesic
CPT/HCPCS: 36000; 36415; 74177; 80053; 82150; 83605; 83690; 84484; 85025; 85610; 93005; 96374; 96375; 96376; 99284; J1170; J2405